=== PATIENT | female | born 1945 | race Caucasian/White ===

== ENCOUNTER 2017-05-14 15:31 | Inpatient (IN) | payer MEDICARE ==
[2017-05-14] MEDS ORDERED: oxyCODONE/Acetamin 5/325 MG* TAB PO ONE (17:38)
--- NOTE | 2017-05-14 17:51 | RAD ---
INDICATION: Fall. Pelvic pain. COMPARISON: None TECHNIQUE: A single AP view of the pelvis is submitted. FINDINGS: There are moderately fractures of the right superior pubic ramus extending to the symphysis and the inferior pubic ramus. No other fractures are evident. There is no diastases of the symphysis or the SI joints. The hips articulate normally. The soft tissues are normal. IMPRESSION: MILDLY DISPLACED FRACTURES RIGHT HEMIPELVIS
--- NOTE | 2017-05-14 18:04 | RAD ---
INDICATION: . Pelvic fracture. COMPARISON: None TECHNIQUE: AP supine views were obtained. FINDINGS: Bones/Soft Tissues: There are no acute bony findings. Cardiomediastinal: The cardiomediastinal silhouette is enlarged. Lungs: There are no infiltrates. There is mild diffuse interstitial prominence Pleura: There are no pleural effusions. Other: None IMPRESSION: MODERATELY ENLARGED CARDIAC SILHOUETTE WITH MILD INTERSTITIAL PROMINENCE LIKELY RELATED TO MILD INTERSTITIAL CONGESTION
[2017-05-14] MEDS ORDERED: Acetaminophen TAB* 325 MG PO PRN (19:29)
[2017-05-14] MEDS ORDERED: NS 0.9% 1000 ML* 1,000 ML IV SCH (19:30)
[2017-05-14] MEDS ORDERED: Ondansetron INJ* 2 MG/ML VIAL IV PRN (19:30)
[2017-05-14] MEDS ORDERED: CMCS Melatonin (NF) 3 MG TAB PO PRN (19:30)
[2017-05-14] MEDS ORDERED: fentaNYL* 50 MCG/ML 2 ML VIAL (100 MCG VIAL) IV SLOW PU PRN (19:30)
--- NOTE | 2017-05-14 19:33 | HP ---
H&P (Free Text) History and Physical: PCP: Matthew Wick MD Date/Time: 05/14/2017 192 CC: pelvic pain s/p fall HPI: Mrs Vides is a 71YO female HX osteoporosis who slipped on her deck at home landing on her buttocks and experiencing immediate R groin pain leaving her unable to get up. A neighbor heard her call for help and was unable to get her to her feet 2nd pain and so EMS was called for transport. There were no prodromal symptoms, specifically no chest pain, SOB, dizziness, focal weakness, or palpitations. ED evaluation reveals mildly comminuted & slightly displaced R superior & inferior pubic rami FXs. Patient was unable to weight bear and so is being observed for pain control. PMedHx osteoporosis GERD anxiety Ambulatory Orders PARoxetine HCL TAB* [Paxil TAB*] 60 mg PO DAILY 05/14/17 Pantoprazole TAB (NF) [Protonix TAB (NF)] 40 mg PO DAILY 05/14/17 Allergies ibuprofen [From Motrin] Allergy (Verified 05/14/17 15:50) Unknown Reaction Details mushroom Allergy (Verified 05/14/17 15:50) Unknown Reaction Details PSurgHx tonsillectomy SocHx: no alcohol, tobacco, or recreational drugs; full code status FamHx: Mother passed at 85 2nd CAD; Father passed at 84 2nd complications of Alzheimer's ROS: as above, otherwise reviewed and all were negative vitals: Vital Signs Temp 36.9 C 05/14/17 21:29 Pulse 63 05/14/17 21:29 Resp 16 05/14/17 21:34 BP 87/50 05/14/17 21:29 Pulse Ox 93 05/14/17 21:29 Intake & Output 05/13/17 05/14/17 05/14/17 23:59 11:59 23:59 Intake Total 150 Output Total 0 Balance 150 Weight 72.575 kg Intake: IV Fluids 0 NS (0.9%) 0 Oral 150 Output: Urine 0 Constitutional: NAD, normally developed, well-nourished elderly white female HEENM: atraumatic; sclera/conjunctiva: anicteric/clear; hearing: clinically intact; oropharynx: clear, mucosa moist Neck: soft tissue: non-tender; thyroid: normal Pulmonary: clear to auscultation bilaterally, good aeration, no accessory muscle use CV: RR/RR, normal S1S2, no carotid bruit, no jugular venous distention, 2+ B DP/ PT, no edema Abdominal: soft, non-distended, non-tender, no rebound/guarding/rigidity, normoactive bowel sounds, no hepatosplenomegaly or masses, no costovertebral angle tenderness Musculoskeletal: general: grossly intact, tender to R groin ; gait: non- ambulatory 2nd pain Integumental: normal appearance and texture of exposed skin Psychiatric orientation: AA&O to PPS affect: calm mood: cooperative eye contact: good content: reliable responses: tangential insight: fair to good Testing: Lab Results 05/14/17 05/14/17 05/14/17 Range/Units 20:12 20:12 20:12 WBC 10.1 (3.5-10.8) 10^3/ul RBC 5.12 (4.0-5.4) 10^6/ul Hgb 15.7 (12.0-16.0) g/dl Hct 46 (35-47) % MCV 91 (80-97) fL MCH 31 (27-31) pg MCHC 34 (31-36) g/dl RDW 13 (10.5-15) % Plt Count 215 (150-450) 10^3/ul MPV 8 (7.4-10.4) um3 Neut % (Auto) 88.8 H (38-83) % Lymph % (Auto) 7.2 L (25-47) % Lucas % (Auto) 3.7 (0-7) % Eos % (Auto) 0 (0-6) % Baso % (Auto) 0.3 (0-2) % Absolute Neuts (auto) 9.0 H (1.5-7.7) 10^3/ul Absolute Lymphs (auto) 0.7 L (1.0-4.8) 10^3/ul Absolute Monos (auto) 0.4 (0-0.8) 10^3/ul Absolute Eos (auto) 0 (0-0.6) 10^3/ul Absolute Basos (auto) 0 (0-0.2) 10^3/ul Absolute Nucleated RBC 0 10^3/ul Nucleated RBC % 0 INR (Anticoag Therapy) 1.10 H (0.77-1.02) APTT 31.2 (26.0-36.3) seconds Sodium 137 (133-145) mmol/L Potassium 4.0 (3.5-5.0) mmol/L Chloride 103 (101-111) mmol/L Carbon Dioxide 26 (22-32) mmol/L Anion Gap 8 (2-11) mmol/L BUN 21 (6-24) mg/dL Creatinine 0.89 (0.51-0.95) mg/dL Est GFR ( Amer) 80.6 (>60) Est GFR (Non-Af Amer) 62.7 (>60) BUN/Creatinine Ratio 23.6 H (8-20) Glucose 138 H (70-100) mg/dL Calcium 9.3 (8.6-10.3) mg/dL CXR, personally reviewed: IMPRESSION: MODERATELY ENLARGED CARDIAC SILHOUETTE WITH MILD INTERSTITIAL PROMINENCE LIKELY RELATED TO MILD INTERSTITIAL CONGESTION XRY pelvis, personally reviewed: IMPRESSION: MILDLY DISPLACED FRACTURES RIGHT HEMIPELVIS Impression: 71F presenting w/ mildly comminuted, mildly displaced R superior & inferior pubic rami FXs s/p mechanical slip & fall DIAGNOSIS & PLAN Primary mildly comminuted, mildly displaced R superior & inferior pubic rami FXs s/p mechanical slip & fall : pain control : PT evaluation : consider orthopedic consult in AM : supportive care Secondary GERD : omeprazole anxiety : continue paroxetine Admission Rational: observation for pain control DVTp: SCDs & heparin SQ Code Status: full HCP: brotherMark
[2017-05-14 20:21] LABS: ABS Basophils 0 10^3/ul (0-0.2); ABS Eosinophils 0 10^3/ul (0-0.6); ABS Lymphocytes 0.7 10^3/ul (1.0-4.8); ABS Monocytes 0.4 10^3/ul (0-0.8); ABS Nucleated RBC 0 10^3/ul; Eosinophil % 0 % (0-6); Hematocrit 46 % (35-47); Hemoglobin 15.7 g/dl (12.0-16.0); Lymphocyte % 7.2 % (25-47); Mean Corpuscular HGB Conc 34 g/dl (31-36); Mean Corpuscular Hemoglobin 31 pg (27-31); Mean Corpuscular Volume 91 fL (80-97); Mean Platelet Volume 8 um3 (7.4-10.4); Nucleated Red Blood Cells % 0; Platelet Count 215 10^3/ul (150-450); Red Blood Count 5.12 10^6/ul (4.0-5.4); Red Cell Distribution Width 13 % (10.5-15); White Blood Count 10.1 10^3/ul (3.5-10.8)
[2017-05-14 20:29] LABS: INR 1.1 (0.77-1.02)
[2017-05-14 20:36] LABS: EGFR Non-African American 62.7 (>60)
--- NOTE | 2017-05-14 21:12 | ED ---
Deng Douglas Stephanie, scribed for Isaac Park MD on 05/14/17 at 1611 . Lower Extremity - HPI Summary HPI Summary: The pt is a 71 F presenting to the ED with c/o R groin pain that began at 15:48 s/p fall. Symptoms include back pain. The pt reports she hit the L side of her body and the occipital region of her head when she fell. - History of Current Complaint Chief Complaint: EDHipPelvisInjury Stated Complaint: FALL Time Seen by Provider: 05/14/17 15:40 Hx Obtained From: Patient Mechanism Of Injury: Fall From A Standing Position Onset of Pain: Post Accident Onset/Duration: Hours Severity Currently: Severe Pain Intensity: 10 Pain Scale Used: 0-10 Numeric Timing: Constant Location: Is Discrete @ - R groin, L side of back Aggravating Factor(s): Nothing Alleviating Factor(s): Nothing - Allergies/Home Medications Allergies/Adverse Reactions: Allergies Allergy/AdvReac Type Severity Reaction Status Date / Time ibuprofen [From Motrin] Allergy Unknown Verified 05/14/17 15:50 Reaction Details mushroom Allergy Unknown Verified 05/14/17 15:50 Reaction Details PMH/Surg Hx/FS Hx/Imm Hx Sensory History: Denies: Hx Legally Blind EENT History: Denies: Hx Deafness - Surgical History Surgery Procedure, Year, and Place: NONE Infectious Disease History: No Infectious Disease History: Denies: Traveled Outside the [place] in Last 30 Days - Family History Known Family History: Positive: Cardiac Disease - Social History Occupation: Retired Lives: Alone Alcohol Use: None Substance Use Type: Reports: None Smoking Status (MU): Never Smoked Tobacco Review of Systems Negative: Fever Positive: Other - back pain, R sided groin pain All Other Systems Reviewed And Are Negative: Yes Physical Exam - Summary Physical Exam Summary: Appearance: The patient is well-nourished in no acute distress and in no acute pain. Skin: The skin is warm and dry and skin color reflects adequate perfusion. HEENT: The head is normocephalic and atraumatic. The pupils are equal and reactive. The conjunctivae are clear and without drainage. Nares are patent and without drainage. Mouth reveals moist mucous membranes and the throat is without erythema and exudate. The external ears are intact. The ear canals are patent and without drainage. The tympanic membranes are intact. Neck: the neck is supple with full range of motion and non-tender. There are no carotid bruits. There is no neck vein distension. Respiratory: Chest is non-tender. Lungs are clear to auscultation and breath sounds are symmetrical and equal. Cardiovascular: Heart is regular rate and rhythm. There is no murmur or rub auscultated. There is no peripheral edema and pulses are symmetrical and equal. Abdomen: The abdomen is soft and non-tender. There are normal bowel sounds heard in all four quadrants and there is no organomegaly palpated. Musculoskeletal: There is no back tenderness noted. Tender to ROM of R hip. Pelvis solid and nontender to compression. There is good capillary refill. There is no peripheral edema or calf tenderness elicited. Tenderness over L anterior chest wall: pectoralis area. Neurological: Patient is alert and oriented to person, place and time. The patient has symmetrical motor strength in all four extremities. Cranial nerves are grossly intact. Deep tendon reflexes are symmetrical and equal in all four extremities. Psychiatric: The patient has an appropriate affect and does not exhibit any anxiety or depression Triage Information Reviewed: Yes Vital Signs On Initial Exam: Initial Vitals Temp Pulse Resp BP Pulse Ox 98.7 F 84 16 148/99 93 05/14/17 15:48 05/14/17 15:48 05/14/17 15:48 05/14/17 15:48 05/14/17 15:48 Vital Signs Reviewed: Yes Diagnostics - Vital Signs Vital Signs Temp Pulse Resp BP Pulse Ox 05/14/17 15:50 83 145/91 93 05/14/17 15:48 98.7 F 84 16 148/99 93 - Laboratory Result Diagrams: 05/14/17 20:12 05/14/17 20:12 Lab Statement: Any lab studies that have been ordered have been reviewed, and results considered in the medical decision making process. - Radiology Pelvis XRay Xray Interpretation: Positive (See Comments) Radiology Interpretation Completed By: Radiologist - MILDLY DISPLACED FRACTURES RIGHT HEMIPELVIS CXR Xray Interpretation: Positive (See Comments) Radiology Interpretation Completed By: Radiologist - MODERATELY ENLARGED CARDIAC SILHOUETTE WITH MILD INTERSTITIAL PROMINENCE LIKELY RELATED TO MILD INTERSTITIAL CONGESTION Lower Extremity Course/Dx - Course Course Of Treatment: Ms. Vides slipped down smoe cement stairs while shoveling snow. She primarily complained of right groin pain and was found to have a pelvic fracture. Her tran was unable to be controlled enough for her to ambulate. I consulted the hospitalists. - Diagnoses Provider Diagnoses: Pelvic fracture, Contractible pain Discharge - Discharge Plan Condition: Stable Disposition: ADMITTED TO [facility] documentation as recorded by the Deng lewis Stephanie accurately reflects the service I personally performed and the decisions made by me, Isaac Park MD.
[2017-05-14] MEDS: oxyCODONE TAB* 5 MG TAB PO PRN (21:34)
[2017-05-14] MEDS: Docusate CAP* 100 MG PO SCH (21:34)
[2017-05-15] MEDS: oxyCODONE TAB* 5 MG TAB PO PRN ×2 (05:34→19:27)
[2017-05-15] MEDS: Omeprazole CAP* 20 MG PO SCH (05:34)
[2017-05-15] MEDS: Heparin VIAL(*) 5000 UNITS/ML VIAL (FIVE THOUSAND) SUBCUT SCH ×3 (05:34→22:07)
[2017-05-15] MEDS: PARoxetine HCL TAB* 20 MG PO SCH (08:07)
[2017-05-15] MEDS: Docusate CAP* 100 MG PO SCH ×2 (08:07→19:27)
[2017-05-15] MEDS: traMADol TAB* 50 MG PO PRN (10:26)
--- NOTE | 2017-05-15 14:58 | PN ---
Subjective Date of Service: 05/15/17 Interval History: Patient in significant pain in right groin. Worse with movement, sharp, no other provoking or palliating factors. Patient states that if she need rehab she doesn't think she could manage at home. Patient would like her neighbor contacted to discuss her condition. Patient states that she takes a medication for osteoporosis at home but does not remember the name. Neighbor talked to on phone and will bring in medications. Patient denies F/C, N/V, abdominal pain, diarrhea, CP, SOB, Palpitations, or other pain. Family History: Unchanged from Admission Social History: Unchanged from Admission Past Medical History: Unchanged from Admission Objective Active Medications: Acetaminophen (Tylenol Tab*) 650 mg PO Q6H PRN PRN Reason: FEVER/PAIN Docusate Sodium (Colace Cap*) 200 mg PO BID [facility] Last Admin: 05/15/17 08:07 Dose: 200 mg Fentanyl Citrate (Fentanyl*) 25 mcg IV SLOW PU Q2H PRN PRN Reason: PAIN Heparin Sodium (Porcine) (Heparin Vial(*)) 5,000 units SUBCUT Q8HR [facility] Last Admin: 05/15/17 05:34 Dose: 5,000 units Sodium Chloride (Ns 0.9% 1000 Ml*) 1,000 mls @ 75 mls/hr IV PER RATE [facility] Last Admin: 05/15/17 10:26 Dose: 75 mls/hr Melatonin (Melatonin (Nf)) 3 mg PO BEDTIME PRN; Protocol PRN Reason: Sleep Omeprazole (Prilosec Cap*) 20 mg PO DAILY@0600 [facility] Last Admin: 05/15/17 05:34 Dose: 20 mg Ondansetron HCl (Zofran Inj*) 4 mg IV Q6H PRN PRN Reason: NAUSEA Oxycodone HCl (Roxycodone Tab*) 5 mg PO Q4H PRN PRN Reason: PAIN Last Admin: 05/15/17 05:34 Dose: 5 mg Paroxetine HCl (Paxil Tab*) 60 mg PO DAILY [facility] Last Admin: 05/15/17 08:07 Dose: 60 mg Tramadol HCl (Ultram*) 50 mg PO Q6H PRN PRN Reason: PAIN Last Admin: 05/15/17 10:26 Dose: 50 mg Vital Signs - 8 hr 05/15/17 05/15/17 05/15/17 10:26 11:11 11:21 Pulse Rate 76 Respiratory 18 Rate Blood Pressure 72/55 88/58 (mmHg) O2 Sat by Pulse 96 Oximetry 05/15/17 05/15/17 11:48 12:30 Pulse Rate Respiratory 18 18 Rate Blood Pressure (mmHg) O2 Sat by Pulse Oximetry Oxygen Devices in Use Now: None Appearance: Patient is a 71yo female who appears stated age and is sitting in the bed in NAD. Eyes: No Scleral Icterus, PERRLA Ears/Nose/Mouth/Throat: NL Teeth, Lips, Gums, Clear Oropharnyx, Mucous Membranes Moist Neck: NL Appearance and Movements; NL JVP, Trachea Midline Respiratory: Symmetrical Chest Expansion and Respiratory Effort, Clear to Auscultation Cardiovascular: NL Sounds; No Murmurs; No JVD, RRR, No Edema Abdominal: NL Sounds; No Tenderness; No Distention, No Hepatosplenomegaly Lymphatic: No Cervical Adenopathy Extremities: No Edema, No Clubbing, Cyanosis, - - Pain with movement of RLE. No obvious deformity or ecchymosis. Skin: No Rash or Ulcers, No Nodules or Sclerosis Neurological: Alert and Oriented x 3, NL Sensation, NL Muscle Strength and Tone , - Result Diagrams: 05/14/17 20:12 05/14/17 20:12 Assess/Plan/Problems-Billing Assessment: Patient is a 71yo female with a PMH significant for Osteoporosis, GERD, and anxiety who presents after a purely mechanical fall with a minimally displaced right sided pelvic fracture. Patient is admitted for pain control, PT/OT and probable placement. - Patient Problems (1) Pelvic fracture Current Visit: Yes Status: Acute Code(s): S32.9XXA - FRACTURE OF UNSP PARTS OF LUMBOSACRAL SPINE AND PELVIS, INIT SNOMED Code(s): 95711021 Comment: Xray shows mildly displaced fracture of superior and inferior pubic ramus fracture. Patient in significant pain. Appreciate ortho consult. WBAT on Right leg. PT/OT. Patient will likely need JERMAINE and would like to go to a facility because she has no help at home. (2) Osteoporosis Current Visit: Yes Status: Acute Code(s): M81.0 - AGE-RELATED OSTEOPOROSIS W /O CURRENT PATHOLOGICAL FRACTURE SNOMED Code(s): 08737610 Comment: Patient has a history of osteoporosis and is on medication which she does not remember the name of and does not remember who long she has been medicated. (3) Anxiety Current Visit: Yes Status: Acute Code(s): F41.9 - ANXIETY DISORDER, UNSPECIFIED SNOMED Code(s): 41274838 Comment: Continue Sertraline (4) GERD (gastroesophageal reflux disease) Current Visit: Yes Status: Acute Code(s): K21.9 - GASTRO-ESOPHAGEAL REFLUX DISEASE WITHOUT ESOPHAGITIS SNOMED Code(s): 809836639 Comment: Continue Omeprazole. (5) DVT prophylaxis Current Visit: Yes Status: Acute Code(s): JZP1726 - SNOMED Code(s): 459801076 Comment: Heparin SubQ (6) Full code status Current Visit: Yes Status: Acute Code(s): Z78.9 - OTHER SPECIFIED HEALTH STATUS SNOMED Code(s): 755378269 Status and Disposition: Patient is admitted inpatient. Plan for JERMAINE.
--- NOTE | 2017-05-15 16:51 | CONS ---
CONSULTATION REPORT: DATE OF CONSULT: 05/15/17 ATTENDING PHYSICIAN: Dr. Rogel. CHIEF COMPLAINT: Pelvic pain, status post fall, 05/14/17. HISTORY OF PRESENT ILLNESS: The patient is a 71-year-old female with a past medical history of osteoporosis, GERD, anxiety, who had a mechanical fall while entering her home on 05/14/17. The patient denies any lightheadedness, dizziness, or syncopal episodes prior to the fall. She landed on her buttock and experienced immediate right groin pain, which she was unable to get up from. She did complain of hitting her head; however, denies any loss of consciousness and does not have any complaints from this. She laid on the ground for a short period of time until her neighbor came over and was able to help her. She was unable to stand and was transported to the hospital via EMS. X-rays obtained at 1648 showed moderate fractures of the right superior pubic ramus extending to the symphysis and the inferior pubic ramus with no other evident fractures with normal hip articulation and all fractures involving the right hemipelvis. The patient was admitted for pain control and for physical therapy as she was unable to bear weight due to pain. The patient denies any prior injuries to her pelvis in the past. Patient is a poor historian due to her fatigue, much information gathered PAST MEDICAL HISTORY: 1. Osteoporosis. 2. GERD. 3. Anxiety. PAST SURGICAL HISTORY: Tonsillectomy. FAMILY MEDICAL HISTORY: Mother, CAD; father, Alzheimer's. SOCIAL HISTORY: Denies alcohol, tobacco use, or recreational drug use. REVIEW OF SYSTEMS: Unable to obtain as the patient was very sleepy during the examination and had difficulty remaining awake; however, denies any other pains throughout her body other than in her groin area. PHYSICAL EXAMINATION: Vital Signs: Temperature 97.9, pulse rate 85, respirations 24, oxygen saturation 94% on room air, blood pressure 141/89. General: Well appearing, no acute distress, alert and oriented; however, falls asleep frequently during examination. HEENT: Normocephalic, atraumatic. Conjunctivae clear. EOMI. Abdomen: Soft, nontender, nondistended. No rebound. Vascular: Femoral and posterior tibial pulses 2+ bilaterally. Musculoskeletal: Equal dorsiflexion and plantar flexion bilaterally. Sensation intact to bilateral lower extremities. No tenderness to palpation in bilateral ankles or knee joints. Full range of motion of bilateral ankles passively, unable to assess full range of motion of knee due to the patient's hip pain. Right hip with abduction to 15 degrees, forward flexion to 40 degrees with pain at end points in the right groin/pubic area. Negative log roll. Left hip with flexion to approximately 40 degrees, abduction to approximately 20 degrees with again pain in the groin area at end points, negative log roll/no pain with internal or external rotation. Skin: Intact. No areas of ecchymosis or hematoma, nontender in inner thighs or palpable groin areas bilaterally. Integument: Normal appearance. No visual signs of openings or abrasions. ASSESSMENT: Mildly displaced fractures involving the right hemipelvis. PLAN: The patient was discussed with Dr. Rogel, who will see the patient later this afternoon. After doing the x-rays, she confirmed that there was no involvements of the hip and the patient could be weightbearing as tolerated on left and right lower extremities. The patient is currently undergoing medications for pain control which appears to be adequate. She states that she had difficulty sleeping overnight due to pain, which can contribute to her fatigue currently. She was seen by physical and occupational therapy this morning, who recommend rehabilitation placement for this patient. This was discussed with her as well. She had no questions regarding her injuries currently; however, would like us to speak with her friend who is coming in this afternoon and she was told that we would be able to be reached for any questions that she may have. The patient's H&H was stable on 05/14/17 at 15.7 and 46. We will monitor this again to ensure that this remains stable as well. She should continue with physical therapy as well as tolerated. RAMONA HIGGINS [id number]/[facility] #: [id number] LIONEL
[2017-05-16] MEDS: traMADol TAB* 50 MG PO PRN ×3 (03:51→23:16)
[2017-05-16] MEDS: Omeprazole CAP* 20 MG PO SCH (05:31)
[2017-05-16] MEDS: Heparin VIAL(*) 5000 UNITS/ML VIAL (FIVE THOUSAND) SUBCUT SCH ×3 (05:32→20:54)
[2017-05-16 06:52] LABS: Hematocrit 41 % (35-47); Hemoglobin 14.2 g/dl (12.0-16.0)
[2017-05-16] MEDS: Docusate CAP* 100 MG PO SCH ×2 (09:07→20:54)
[2017-05-16] MEDS: PARoxetine HCL TAB* 20 MG PO SCH (09:08)
[2017-05-16] MEDS: oxyCODONE TAB* 5 MG TAB PO PRN ×2 (09:09→19:10)
--- NOTE | 2017-05-16 09:23 | PN ---
Progress Note - Progress Note Date of Service: 05/16/17 SOAP: Subjective: resting comfortably with complaints of moderate pelvic/groin pain Objective: Vital Signs Temp Pulse Resp BP Pulse Ox 97.4 F 84 16 159/97 93 05/16/17 03:48 05/16/17 03:48 05/16/17 09:09 05/16/17 03:48 05/16/17 03:48 Laboratory Last Values WBC 10.1 10^3/ul (3.5-10.8) 05/14/17 20:12 RBC 5.12 10^6/ul (4.0-5.4) 05/14/17 20:12 Hgb 14.2 g/dl (12.0-16.0) 05/16/17 06:45 Hct 41 % (35-47) 05/16/17 06:45 MCV 91 fL (80-97) 05/14/17 20:12 MCH 31 pg (27-31) 05/14/17 20:12 MCHC 34 g/dl (31-36) 05/14/17 20:12 RDW 13 % (10.5-15) 05/14/17 20:12 Plt Count 215 10^3/ul (150-450) 05/14/17 20:12 MPV 8 um3 (7.4-10.4) 05/14/17 20:12 Neut % (Auto) 88.8 % (38-83) H 05/14/17 20:12 Lymph % (Auto) 7.2 % (25-47) L 05/14/17 20:12 Dickenson % (Auto) 3.7 % (0-7) 05/14/17 20:12 Eos % (Auto) 0 % (0-6) 05/14/17 20:12 Baso % (Auto) 0.3 % (0-2) 05/14/17 20:12 Absolute Neuts (auto) 9.0 10^3/ul (1.5-7.7) H 05/14/17 20:12 Absolute Lymphs (auto) 0.7 10^3/ul (1.0-4.8) L 05/14/17 20:12 Absolute Monos (auto) 0.4 10^3/ul (0-0.8) 05/14/17 20:12 Absolute Eos (auto) 0 10^3/ul (0-0.6) 05/14/17 20:12 Absolute Basos (auto) 0 10^3/ul (0-0.2) 05/14/17 20:12 Absolute Nucleated RBC 0 10^3/ul 05/14/17 20:12 Nucleated RBC % 0 05/14/17 20:12 INR (Anticoag Therapy) 1.10 (0.77-1.02) H 05/14/17 20:12 APTT 31.2 seconds (26.0-36.3) 05/14/17 20:12 Sodium 137 mmol/L (133-145) 05/14/17 20:12 Potassium 4.0 mmol/L (3.5-5.0) 05/14/17 20:12 Chloride 103 mmol/L (101-111) 05/14/17 20:12 Carbon Dioxide 26 mmol/L (22-32) 05/14/17 20:12 Anion Gap 8 mmol/L (2-11) 05/14/17 20:12 BUN 21 mg/dL (6-24) 05/14/17 20:12 Creatinine 0.89 mg/dL (0.51-0.95) 05/14/17 20:12 Est GFR ( Amer) 80.6 (>60) 05/14/17 20:12 Est GFR (Non-Af Amer) 62.7 (>60) 05/14/17 20:12 BUN/Creatinine Ratio 23.6 (8-20) H 05/14/17 20:12 Glucose 138 mg/dL (70-100) H 05/14/17 20:12 Calcium 9.3 mg/dL (8.6-10.3) 05/14/17 20:12 Total Creatine Kinase 118 U/L (10-223) 05/14/17 20:12 PE: NVI Assessment: s/p fall 05/14 with mildly displaced right pelvic fracture Plan: 1) Continue DVT prophylaxis 2) PT/OT-WBAT 3) Will continue to follow
--- NOTE | 2017-05-16 12:29 | PN ---
Subjective Date of Service: 05/16/17 Interval History: Patient complains of continued but improved pain in right groin. Patient denies associated symptoms including CP, SOB, F/C, N/V, Abdominal pain, diarrhea, constipation, F/C, palpitations, lightheadedness, or other pain. Patient states that she is not and has never been on a medication for her anxiety and does not take Paxil at home. Patient brought in her medications and states that she is on Raloxofine. Family History: Unchanged from Admission Social History: Unchanged from Admission Past Medical History: Unchanged from Admission Objective Active Medications: Acetaminophen (Tylenol Tab*) 650 mg PO Q6H PRN PRN Reason: FEVER/PAIN Docusate Sodium (Colace Cap*) 200 mg PO BID [facility] Last Admin: 05/16/17 09:07 Dose: 100 mg Fentanyl Citrate (Fentanyl*) 25 mcg IV SLOW PU Q2H PRN PRN Reason: PAIN Heparin Sodium (Porcine) (Heparin Vial(*)) 5,000 units SUBCUT Q8HR [facility] Last Admin: 05/16/17 05:32 Dose: 5,000 units Melatonin (Melatonin (Nf)) 3 mg PO BEDTIME PRN; Protocol PRN Reason: Sleep Ondansetron HCl (Zofran Inj*) 4 mg IV Q6H PRN PRN Reason: NAUSEA Oxycodone HCl (Roxycodone Tab*) 5 mg PO Q4H PRN PRN Reason: PAIN Last Admin: 05/16/17 09:09 Dose: 5 mg Pantoprazole Sodium (Protonix Tab (Nf)) 40 mg PO DAILY [facility] Raloxifene HCl (Evista(Nf)) 60 mg PO DAILY [facility] PRN Reason: Protocol Tramadol HCl (Ultram*) 50 mg PO Q6H PRN PRN Reason: PAIN Last Admin: 05/16/17 03:51 Dose: 50 mg Vital Signs - 8 hr 05/16/17 05/16/17 05/16/17 05:34 07:29 09:00 Temperature 97.9 F Pulse Rate 78 Respiratory 16 16 16 Rate Blood Pressure 145/87 (mmHg) O2 Sat by Pulse 92 Oximetry 05/16/17 05/16/17 05/16/17 09:09 11:22 11:45 Temperature 98.0 F Pulse Rate 71 Respiratory 16 16 16 Rate Blood Pressure 99/66 (mmHg) O2 Sat by Pulse 95 Oximetry Oxygen Devices in Use Now: None Appearance: Patient is a 71yo female who appears stated age and is sitting in the chair in NAD. Eyes: No Scleral Icterus, PERRLA Ears/Nose/Mouth/Throat: NL Teeth, Lips, Gums, Clear Oropharnyx, Mucous Membranes Moist Neck: NL Appearance and Movements; NL JVP, Trachea Midline Respiratory: Symmetrical Chest Expansion and Respiratory Effort, Clear to Auscultation Cardiovascular: NL Sounds; No Murmurs; No JVD, RRR, No Edema, - - Pulses 2+ in LE B/L. No numbness, tingling, pallor. Abdominal: NL Sounds; No Tenderness; No Distention, No Hepatosplenomegaly Lymphatic: No Cervical Adenopathy Extremities: No Edema, No Clubbing, Cyanosis, - - No deformity of RLE. Skin: No Rash or Ulcers, No Nodules or Sclerosis Neurological: Alert and Oriented x 3, NL Sensation, NL Muscle Strength and Tone , - - CN II-XII intact. Result Diagrams: 05/16/17 06:45 05/14/17 20:12 Assess/Plan/Problems-Billing Assessment: Patient is a 71yo female with a PMH significant for Osteoporosis, GERD, and anxiety who presents after a purely mechanical fall with a minimally displaced right sided pelvic fracture. Patient is admitted for pain control, PT/OT and probable placement. - Patient Problems (1) Pelvic fracture Current Visit: Yes Status: Acute Code(s): S32.9XXA - FRACTURE OF UNSP PARTS OF LUMBOSACRAL SPINE AND PELVIS, INIT SNOMED Code(s): 35169839 Comment: Appreciate ortho consult. Xray shows mildly displaced fracture of superior and inferior pubic ramus fracture. Patient in significant pain. WBAT on Right leg. PT/OT, using EZ stand st this time. Patient will likely need JERMAINE and would like to go to a facility because she has no help at home. (2) Osteoporosis Current Visit: Yes Status: Acute Code(s): M81.0 - AGE-RELATED OSTEOPOROSIS W /O CURRENT PATHOLOGICAL FRACTURE SNOMED Code(s): 37359874 Comment: Patient has a history of osteoporosis. Continue Raloxifine. (3) Anxiety Current Visit: Yes Status: Acute Code(s): F41.9 - ANXIETY DISORDER, UNSPECIFIED SNOMED Code(s): 21161706 Comment: Supportive care. On no medications. (4) GERD (gastroesophageal reflux disease) Current Visit: Yes Status: Acute Code(s): K21.9 - GASTRO-ESOPHAGEAL REFLUX DISEASE WITHOUT ESOPHAGITIS SNOMED Code(s): 097622659 Comment: Continue Omeprazole. (5) DVT prophylaxis Current Visit: Yes Status: Acute Code(s): BOS0274 - SNOMED Code(s): 425391430 Comment: Heparin SubQ (6) Full code status Current Visit: Yes Status: Acute Code(s): Z78.9 - OTHER SPECIFIED HEALTH STATUS SNOMED Code(s): 295673332 Status and Disposition: Patient is admitted inpatient. Plan for JERMAINE on Thursday.
[2017-05-16] MEDS: RALOXIFENE 60 MG PO SCH (15:39)
[2017-05-16] MEDS ORDERED: Baclofen TAB* 10 MG PO PRN (21:04)
[2017-05-17] MEDS ORDERED: Cyclobenzaprine TAB* 10 MG PO ONE (02:31)
[2017-05-17 05:03] LABS: ABS Basophils 0 10^3/ul (0-0.2); ABS Eosinophils 0 10^3/ul (0-0.6); ABS Lymphocytes 1.2 10^3/ul (1.0-4.8); ABS Monocytes 0.5 10^3/ul (0-0.8); ABS Neutrophils 5.2 10^3/ul (1.5-7.7); ABS Nucleated RBC 0 10^3/ul; Eosinophil % 0.2 % (0-6); Hematocrit 42 % (35-47); Hemoglobin 14.4 g/dl (12.0-16.0); Lymphocyte % 17.5 % (25-47); Mean Corpuscular HGB Conc 34 g/dl (31-36); Mean Corpuscular Hemoglobin 31 pg (27-31); Mean Corpuscular Volume 90 fL (80-97); Mean Platelet Volume 8 um3 (7.4-10.4); Nucleated Red Blood Cells % 0.1; Platelet Count 193 10^3/ul (150-450); Red Blood Count 4.69 10^6/ul (4.0-5.4); Red Cell Distribution Width 13 % (10.5-15)
[2017-05-17 05:04] LABS: Hematocrit 41 % (35-47); Hemoglobin 14.2 g/dl (12.0-16.0)
[2017-05-17 05:14] LABS: EGFR Non-African American 102.8 (>60)
[2017-05-17] MEDS: Heparin VIAL(*) 5000 UNITS/ML VIAL (FIVE THOUSAND) SUBCUT SCH ×3 (05:42→21:56)
[2017-05-17] MEDS: PANTOPRAZOLE 40 MG PO SCH (09:32)
[2017-05-17] MEDS: Docusate CAP* 100 MG PO SCH ×2 (09:32→19:27)
[2017-05-17] MEDS: oxyCODONE TAB* 5 MG TAB PO PRN ×2 (09:32→19:27)
--- NOTE | 2017-05-17 09:32 | PN ---
Progress Note - Progress Note Date of Service: 05/17/17 SOAP: Subjective: patient OOB to chair with improving pain; continues to have moderate right groin /thigh pain Objective: Laboratory Last Values WBC 7.0 10^3/ul (3.5-10.8) 05/17/17 04:48 RBC 4.69 10^6/ul (4.0-5.4) 05/17/17 04:48 Hgb 14.2 g/dl (12.0-16.0) 05/17/17 04:48 Hct 41 % (35-47) 05/17/17 04:48 MCV 90 fL (80-97) 05/17/17 04:48 MCH 31 pg (27-31) 05/17/17 04:48 MCHC 34 g/dl (31-36) 05/17/17 04:48 RDW 13 % (10.5-15) 05/17/17 04:48 Plt Count 193 10^3/ul (150-450) 05/17/17 04:48 MPV 8 um3 (7.4-10.4) 05/17/17 04:48 Neut % (Auto) 74.8 % (38-83) 05/17/17 04:48 Lymph % (Auto) 17.5 % (25-47) L 05/17/17 04:48 [place] % (Auto) 7.2 % (0-7) H 05/17/17 04:48 Eos % (Auto) 0.2 % (0-6) 05/17/17 04:48 Baso % (Auto) 0.3 % (0-2) 05/17/17 04:48 Absolute Neuts (auto) 5.2 10^3/ul (1.5-7.7) 05/17/17 04:48 Absolute Lymphs (auto) 1.2 10^3/ul (1.0-4.8) 05/17/17 04:48 Absolute Monos (auto) 0.5 10^3/ul (0-0.8) 05/17/17 04:48 Absolute Eos (auto) 0 10^3/ul (0-0.6) 05/17/17 04:48 Absolute Basos (auto) 0 10^3/ul (0-0.2) 05/17/17 04:48 Absolute Nucleated RBC 0 10^3/ul 05/17/17 04:48 Nucleated RBC % 0.1 05/17/17 04:48 INR (Anticoag Therapy) 1.10 (0.77-1.02) H 05/14/17 20:12 APTT 31.2 seconds (26.0-36.3) 05/14/17 20:12 Sodium 135 mmol/L (133-145) 05/17/17 04:48 Potassium 3.6 mmol/L (3.5-5.0) 05/17/17 04:48 Chloride 100 mmol/L (101-111) L 05/17/17 04:48 Carbon Dioxide 29 mmol/L (22-32) 05/17/17 04:48 Anion Gap 6 mmol/L (2-11) 05/17/17 04:48 BUN 15 mg/dL (6-24) 05/17/17 04:48 Creatinine 0.58 mg/dL (0.51-0.95) 05/17/17 04:48 Est GFR ( Amer) 132.2 (>60) 05/17/17 04:48 Est GFR (Non-Af Amer) 102.8 (>60) 05/17/17 04:48 BUN/Creatinine Ratio 25.9 (8-20) H 05/17/17 04:48 Glucose 119 mg/dL (70-100) H 05/17/17 04:48 Calcium 8.7 mg/dL (8.6-10.3) 05/17/17 04:48 Total Creatine Kinase 118 U/L (10-223) 05/14/17 20:12 Vital Signs Temp Pulse Resp BP Pulse Ox 98.6 F 82 16 157/94 91 05/17/17 07:29 05/17/17 07:29 05/17/17 07:45 05/17/17 07:29 05/17/17 07:29 PE: NVI Assessment: s/p fall with mildly displaced right pelvic fracture Plan: 1) PT/OT- WBAT 2) hospitalist co-managing 3) continue DVT prophylaxis 4) Will need rehab, patient lives alone.
[2017-05-17] MEDS: RALOXIFENE 60 MG PO SCH (09:33)
[2017-05-17] MEDS ORDERED: Senna TAB PO PRN (10:00)
--- NOTE | 2017-05-17 10:59 | PN ---
Subjective Date of Service: 05/17/17 Interval History: Patient did not sleep well due to pain in her groin. Patient described the pain as spasming and baclofen was trialed without success but it responded to Flexeril. Patient complains of symptomatic constipation with her last BM 3 days ago. Patient denies other complaint including N/V, F/C, CP, SOB, Abdominal pain , diarrhea, dysuria, or other pain. Family History: Unchanged from Admission Social History: Unchanged from Admission Past Medical History: Unchanged from Admission Objective Active Medications: Acetaminophen (Tylenol Tab*) 650 mg PO Q6H PRN PRN Reason: FEVER/PAIN Cyclobenzaprine HCl (Flexeril Tab*) 10 mg PO TID PRN PRN Reason: SPASMS Docusate Sodium (Colace Cap*) 200 mg PO BID [facility] Last Admin: 05/17/17 09:32 Dose: 200 mg Fentanyl Citrate (Fentanyl*) 25 mcg IV SLOW PU Q2H PRN PRN Reason: PAIN Heparin Sodium (Porcine) (Heparin Vial(*)) 5,000 units SUBCUT Q8HR [facility] Last Admin: 05/17/17 05:42 Dose: 5,000 units Melatonin (Melatonin (Nf)) 3 mg PO BEDTIME PRN; Protocol PRN Reason: Sleep Ondansetron HCl (Zofran Inj*) 4 mg IV Q6H PRN PRN Reason: NAUSEA Oxycodone HCl (Roxycodone Tab*) 5 mg PO Q4H PRN PRN Reason: PAIN Last Admin: 05/17/17 09:32 Dose: 5 mg Pantoprazole Sodium (Protonix Tab (Nf)) 40 mg PO DAILY [facility] Last Admin: 05/17/17 09:32 Dose: 40 mg Polyethylene Glycol/Electrolytes (Miralax*) 17 gm PO DAILY PRN PRN Reason: CONSTIPATION Raloxifene HCl (Evista(Nf)) 60 mg PO DAILY [facility] PRN Reason: Protocol Last Admin: 05/17/17 09:33 Dose: 60 mg Senna (Senokot Tab*) 1 tab PO DAILY PRN PRN Reason: CONSTIPATION Tramadol HCl (Ultram*) 50 mg PO Q6H PRN PRN Reason: PAIN Last Admin: 05/16/17 23:16 Dose: 50 mg Vital Signs - 8 hr 05/17/17 05/17/17 05/17/17 03:41 03:46 03:47 Temperature 98.7 F Pulse Rate 77 Respiratory 20 18 18 Rate Blood Pressure 148/88 (mmHg) O2 Sat by Pulse 94 Oximetry 05/17/17 05/17/17 05/17/17 05:52 07:29 07:45 Temperature 98.6 F Pulse Rate 82 Respiratory 18 16 16 Rate Blood Pressure 157/94 (mmHg) O2 Sat by Pulse 91 Oximetry 05/17/17 09:32 Temperature Pulse Rate Respiratory 16 Rate Blood Pressure (mmHg) O2 Sat by Pulse Oximetry Oxygen Devices in Use Now: None Appearance: Patient is a 71yo female who appears stated age and is sitting in the bed in [facility]. Eyes: No Scleral Icterus, PERRLA Ears/Nose/Mouth/Throat: NL Teeth, Lips, Gums, Clear Oropharnyx, Mucous Membranes Moist Neck: NL Appearance and Movements; NL JVP, Trachea Midline Respiratory: Symmetrical Chest Expansion and Respiratory Effort, Clear to Auscultation Cardiovascular: NL Sounds; No Murmurs; No JVD, RRR, No Edema Abdominal: NL Sounds; No Tenderness; No Distention, No Hepatosplenomegaly Lymphatic: No Cervical Adenopathy Extremities: No Edema, No Clubbing, Cyanosis, - - Pain with palpation over the right hip. Skin: No Rash or Ulcers, No Nodules or Sclerosis Neurological: Alert and Oriented x 3, NL Sensation, NL Muscle Strength and Tone , - - Normal sensation in LE. Result Diagrams: 05/17/17 04:48 05/17/17 04:48 Assess/Plan/Problems-Billing Assessment: Patient is a 71yo female with a PMH significant for Osteoporosis, GERD, and anxiety who presents after a purely mechanical fall with a minimally displaced right sided pelvic fracture. Patient is admitted for pain control, PT/OT and placement tomorrow. - Patient Problems (1) Pelvic fracture Current Visit: Yes Status: Acute Code(s): S32.9XXA - FRACTURE OF UNSP PARTS OF LUMBOSACRAL SPINE AND PELVIS, INIT SNOMED Code(s): 26235512 Comment: Appreciate ortho consult. Xray shows mildly displaced fracture of superior and inferior pubic ramus fracture. Patient in significant pain. WBAT on Right leg. PT/OT, using EZ stand at this time. Patient will likely need JERMAINE and would like to go to a facility because she has no help at home. Will discharge to [facility] tomorrow. Oxycodone, Tramadol and Flexeril PRN for pain/spasms. (2) Osteoporosis Current Visit: Yes Status: Acute Code(s): M81.0 - AGE-RELATED OSTEOPOROSIS W /O CURRENT PATHOLOGICAL FRACTURE SNOMED Code(s): 87200722 Comment: Patient has a history of osteoporosis. Continue Raloxifine. (3) Constipation Current Visit: Yes Status: Acute Code(s): K59.00 - CONSTIPATION, UNSPECIFIED SNOMED Code(s): 23442213 Comment: Constipated, No BM for 3 days. Likely opiate related. Bowel regimen. (4) Anxiety Current Visit: Yes Status: Acute Code(s): F41.9 - ANXIETY DISORDER, UNSPECIFIED SNOMED Code(s): 80226701 Comment: Supportive care. On no medications. (5) GERD (gastroesophageal reflux disease) Current Visit: Yes Status: Acute Code(s): K21.9 - GASTRO-ESOPHAGEAL REFLUX DISEASE WITHOUT ESOPHAGITIS SNOMED Code(s): 880082011 Comment: Continue Omeprazole. (6) DVT prophylaxis Current Visit: Yes Status: Acute Code(s): MHA1215 - SNOMED Code(s): 609125314 Comment: Heparin SubQ (7) Full code status Current Visit: Yes Status: Acute Code(s): Z78.9 - OTHER SPECIFIED HEALTH STATUS SNOMED Code(s): 062500782 Status and Disposition: Patient is admitted inpatient. Plan for JERMAIEN on Thursday.
--- NOTE | 2017-05-17 14:21 | CONS ---
CONSULTATION REPORT: DATE OF CONSULT: 05/15/17 CHIEF COMPLAINT: Right hip pain. HISTORY OF PRESENT ILLNESS: Isa is a 71-year-old woman who fell at home on her back porch when she slipped. She fell on to her buttocks. She was brought to the emergency room, had x-rays, which showed nondisplaced fractures of the superior and inferior pubic ramus on the right. She denies any numbness and tingling. She denies other injury. She denies loss of consciousness. She has been admitted to the hospital by the hospitalist for physical therapy and pain control. PHYSICAL EXAM: She is a healthy-appearing, very pleasant woman, in minimal distress, sitting in a chair. She has active motion of her hip, knee and ankle. She has intact neurovascular function in her right lower extremity. DIAGNOSTIC DATA: I reviewed her x-rays of the pelvis, which do indeed show a nondisplaced fracture of the inferior and superior pubic ramus of the right. IMPRESSION: Right superior and inferior pubic ramus fracture, nondisplaced. PLAN: Weightbearing as tolerated. Physical therapy evaluation for ambulation with a walker. I will see her back in followup in my office in 2 to 3 weeks for the x- ray. [id number]/[facility] #: [id number] LIONEL
[2017-05-17] MEDS: Polyethylene Glycol 3350* 17 GM PACKET PO PRN (14:34)
[2017-05-17] MEDS: Cyclobenzaprine TAB* 10 MG PO PRN ×2 (16:23→21:57)
[2017-05-18] MEDS: oxyCODONE TAB* 5 MG TAB PO PRN (06:21)
[2017-05-18] MEDS: Heparin VIAL(*) 5000 UNITS/ML VIAL (FIVE THOUSAND) SUBCUT SCH (06:25)
[2017-05-18 07:39] VITALS: BP 119/78
[2017-05-18] MEDS: PANTOPRAZOLE 40 MG PO SCH (08:58)
[2017-05-18] MEDS: RALOXIFENE 60 MG PO SCH (08:58)
[2017-05-18] MEDS: Polyethylene Glycol 3350* 17 GM PACKET PO PRN (08:59)
[2017-05-18] MEDS: Docusate CAP* 100 MG PO SCH (08:59)
[2017-05-18] MEDS: Cyclobenzaprine TAB* 10 MG PO PRN (09:02)
--- NOTE | 2017-05-18 09:47 | DS ---
Cc: Dr. Niraj Wick * DISCHARGE SUMMARY: DATE OF ADMISSION: 05/14/17 DATE OF DISCHARGE: 05/17/17 ATTENDING FOR THIS ADMISSION: Oscar Hardin MD PRIMARY CARE PHYSICIAN: Dr. Niraj Wick. MY ATTENDING TODAY: Van Berrios MD.* (DICTATED BY EFRAIN HORN NP) HOSPITAL COURSE: This is a 71-year-old female patient who came to the emergency department on the 14 of May status post a fall. The patient states that she was in her usual state of health; however, she does have osteoporosis. She slipped on her back deck, landing on her buttocks and experiencing some immediate pain in the right groin, and was unable to get up off of the deck. She had to call EMS services. She was brought to the emergency department and she was found to have a nondisplaced pelvic fracture. Per imaging, initially it said it was mildly displaced right superior and inferior pubic rami fractures; however, per Orthopedics note it says that the fracture is not displaced. The patient was seen in consultation by Orthopedics , Dr. Linda Rogel who evaluated her imaging and the patient and per her recommendations, she will be weightbearing as tolerated. It is a nonoperative fracture. She should participate in physical therapy and ambulate with a walker and will need to follow up in 2 to 3 weeks for resolution and healing of the fracture. PHYSICAL EXAMINATION: The patient is awake and alert, in no acute distress. Vital Signs: Currently, temperature 98.7, pulse 81, respiratory rate 17, O2 saturation 94% on room air. Blood pressure 119/78. HEENT: The patient is atraumatic, normocephalic. PERRLA with nonicteric sclerae. NECK: Supple, nontender. No JVD noted. No carotid bruit auscultated. Cardiovascular: S1, S2 are present. Rate and rhythm are regular. No murmurs, gallops, or rubs noted. Lungs: Clear bilaterally to auscultation with no adventitious breath sounds. Abdomen: Soft, nontender, nondistended. No organomegaly appreciated. She has positive bowel sounds all 4 quadrants. Musculoskeletal: There is no clubbing and no cyanosis. No generalized edema. She has some pain over the right hip with mild palpation. Neurologic: She is grossly intact with no focal deficits. She is alert and oriented x3. LABORATORY DATA: Laboratories on the 25th: WBC 7.0, RBC 4.69, hemoglobin 14.2 , hematocrit 41. Sodium 135, potassium 3.6, chloride 100, CO2 of 29, BUN 15, creatinine 0.58, GFR 102.8. Glucose 119, hemoglobin A1c 5.6, calcium 8.7. DISCHARGE MEDICATIONS: Include, 1. Tylenol 650 mg q. 6 hours as needed. 2. Flexeril 10 mg 3 times a day as needed. 3. Colace 200 mg two times a day. 4. Oxycodone 5 mg q. 6 hours as needed. 5. Protonix 40 mg daily. 6. MiraLax 17 g daily as needed. 7. Raloxifene 60 mg daily. 8. Senna one tablet as needed. 9. Tramadol 50 mg q. 6 hours as needed. DISCHARGE DIAGNOSES: 1. Pelvic fracture, status post mechanical fall. 2. History of osteoporosis. 3. Constipation. 4. History of anxiety. 5. Gastroesophageal reflux disease. DISCHARGE DISPOSITION: The patient will be discharged to [facility] in swing status via wheelchair cheerleading coach when bed is obtained, and we can confirm acceptance at that facility. EFRAIN HORN, GOMEZ [id number]/[facility] #: [id number] [facility] MEDICAL CENTERMargaret
--- NOTE | 2017-05-18 13:46 | PN ---
Progress Note - Progress Note Date of Service: 05/18/17 SOAP: Subjective: []Patient seen at bedside. Her pain is well controlled and she has no complaints. Denies fever, chills, CP, SOB, leg numbness. Successfully walked with walker which she tolerated well. Objective: [] Vital Signs Temp 98.7 F 05/18/17 07:34 Pulse 81 05/18/17 07:34 Resp 20 05/18/17 09:02 BP 119/78 05/18/17 07:34 Pulse Ox 94 05/18/17 07:34 Intake & Output 05/17/17 05/18/17 05/18/17 18:59 06:59 18:59 Intake Total 930 840 225 Output Total 1000 600 Balance -70 240 225 Intake: Oral 930 840 225 Output: Urine 1000 600 Other: # Bowel Movements 0 Laboratory Last Values WBC 7.0 10^3/ul (3.5-10.8) 05/17/17 04:48 RBC 4.69 10^6/ul (4.0-5.4) 05/17/17 04:48 Hgb 14.2 g/dl (12.0-16.0) 05/17/17 04:48 Hct 41 % (35-47) 05/17/17 04:48 MCV 90 fL (80-97) 05/17/17 04:48 MCH 31 pg (27-31) 05/17/17 04:48 MCHC 34 g/dl (31-36) 05/17/17 04:48 RDW 13 % (10.5-15) 05/17/17 04:48 Plt Count 193 10^3/ul (150-450) 05/17/17 04:48 MPV 8 um3 (7.4-10.4) 05/17/17 04:48 Neut % (Auto) 74.8 % (38-83) 05/17/17 04:48 Lymph % (Auto) 17.5 % (25-47) L 05/17/17 04:48 [place] % (Auto) 7.2 % (0-7) H 05/17/17 04:48 Eos % (Auto) 0.2 % (0-6) 05/17/17 04:48 Baso % (Auto) 0.3 % (0-2) 05/17/17 04:48 Absolute Neuts (auto) 5.2 10^3/ul (1.5-7.7) 05/17/17 04:48 Absolute Lymphs (auto) 1.2 10^3/ul (1.0-4.8) 05/17/17 04:48 Absolute Monos (auto) 0.5 10^3/ul (0-0.8) 05/17/17 04:48 Absolute Eos (auto) 0 10^3/ul (0-0.6) 05/17/17 04:48 Absolute Basos (auto) 0 10^3/ul (0-0.2) 05/17/17 04:48 Absolute Nucleated RBC 0 10^3/ul 05/17/17 04:48 Nucleated RBC % 0.1 05/17/17 04:48 INR (Anticoag Therapy) 1.10 (0.77-1.02) H 05/14/17 20:12 APTT 31.2 seconds (26.0-36.3) 05/14/17 20:12 Sodium 135 mmol/L (133-145) 05/17/17 04:48 Potassium 3.6 mmol/L (3.5-5.0) 05/17/17 04:48 Chloride 100 mmol/L (101-111) L 05/17/17 04:48 Carbon Dioxide 29 mmol/L (22-32) 05/17/17 04:48 Anion Gap 6 mmol/L (2-11) 05/17/17 04:48 BUN 15 mg/dL (6-24) 05/17/17 04:48 Creatinine 0.58 mg/dL (0.51-0.95) 05/17/17 04:48 Est GFR ( Amer) 132.2 (>60) 05/17/17 04:48 Est GFR (Non-Af Amer) 102.8 (>60) 05/17/17 04:48 BUN/Creatinine Ratio 25.9 (8-20) H 05/17/17 04:48 Glucose 119 mg/dL (70-100) H 05/17/17 04:48 Hemoglobin A1c 5.6 % (4.0-5.6) 05/17/17 04:48 Calcium 8.7 mg/dL (8.6-10.3) 05/17/17 04:48 Total Creatine Kinase 118 U/L (10-223) 05/14/17 20:12 General: Laying in bed, well appearing, NAD RLE: no bruising, erythema or abrasions. Patient is nontender over R pelvis. Moves hip, knee and ankle well without obvious discomfort. DP2+. Sensation intact distally. BL LE: Calves supple and nontender without erythema, edema or palpable cords. Assessment: []Right nondisplaced pubic rami fracture Plan: []WBAT PT/OT FU Dr Rogel in 2 weeks for repeat xrays, sooner PRN
== END 2017-05-18 11:15 | DRG 536 ==
LOC: ED 15:31 → SSU 19:24 → OBSVTOIN 05-15 10:18
PROVIDERS: ADMIT Hospitalist; ATTEND Internal Medicine
DX: S32.591A Other specified fracture of right pubis, initial encounter for closed fracture (principal); F41.9 Anxiety disorder, unspecified; W18.39XA Other fall on same level, initial encounter; Y92.008 Other place in unspecified non-institutional (private) residence as the place of occurrence of the external cause; M81.0 Age-related osteoporosis without current pathological fracture; K59.00 Constipation, unspecified; K21.9 Gastro-esophageal reflux disease without esophagitis; Z79.899 Other long term (current) drug therapy; Z88.6 Allergy status to analgesic agent; Z91.018 Allergy to other foods; Z82.49 Family history of ischemic heart disease and other diseases of the circulatory system
CPT/HCPCS: 36415; 71045; 72170; 80048; 82550; 83036; 85014; 85018; 85025; 85610; 85730; 99284; A9270-GY; J1644